=== PATIENT | female | born 1960 | race Caucasian/White ===

== ENCOUNTER → 2016-05-31 | Outpatient (CLI) | payer OTHER ==
[2016-05-31 07:24] LABS: MEAN PLATELET VOLUME 9.8 FL (7.4-10.4); RED BLOOD COUNT 4.8 10^6/uL (4.35-5.85); RED CELL DISTRIBUTION WIDTH 14.9 % (10.0-14.5)
[2016-05-31 07:43] LABS: ALANINE AMINOTRANSFERASE 32 U/L (0-55); ALBUMIN 3.9 G/DL (3.2-4.5); ANION GAP 7 MMOL/L (5-14); ASPARTATE AMINO TRANSFERASE 23 U/L (5-34); BILIRUBIN,TOTAL 0.4 MG/DL (0.1-1.0); BLOOD UREA NITROGEN 15 MG/DL (7-18); BUN/CREATININE RATIO 18; CALCIUM 8.9 MG/DL (8.5-10.1); CARBON DIOXIDE 25 MMOL/L (21-32); CHLORIDE 107 MMOL/L (98-107); CHOLESTEROL 236 MG/DL (< 200); CREATININE SERUM 0.82 MG/DL (0.60-1.30); DIRECT LDL 169 MG/DL (1-129); GFR ESTIMATED > 60; GLUCOSE 109 MG/DL (70-105); MAGNESIUM 2.3 MG/DL (1.8-2.4); POTASSIUM 4.1 MMOL/L (3.6-5.0); SODIUM 139 MMOL/L (135-145); TOTAL PROTEIN 6.7 G/DL (6.4-8.2); TRIGLYCERIDES 91 MG/DL (<150); VLDL CHOLESTEROL 18 MG/DL (5-40)
[2016-05-31 08:04] LABS: THYROID STIMULATING HORMONE 4.13 UIU/ML (0.35-4.94)
[2016-06-02 07:15] LABS: TRIIODOTHYRONINE T3 FREE 3.7 pg/mL (2.4-4.5)
== END ==
LOC: LAB 07:04
PROVIDERS: ATTEND Nurse Practitioner Family
DX: Z00.00 Encounter for general adult medical examination without abnormal findings (principal)
CPT/HCPCS: 36415; 80053; 80061; 82306; 83036; 83735; 84439; 84443; 84481; 85027

== ENCOUNTER → 2016-07-16 | Outpatient (CLI) | payer OTHER ==
--- NOTE | 2016-07-16 11:13 | Diagnostic Imaging Report ---
Bilateral diagnostic mammogram. CAD is utilized. COMPARISON: 11/17/2015. INDICATION: Lesion seen on prior studies in the right breast. FINDINGS: The breasts are composed of heterogeneously dense parenchyma which may decrease mammographic sensitivity. Previously seen lobulated nodules in the far posterior central aspect of the right MLO view are less prominent on the current exam compatible with diminishing cysts. There is no definite mass, architectural distortion, or suspicious cluster of calcification. Allowing for technique and positional differences, no suspicious change is seen. IMPRESSION: No significant change. ACR BI-RADS Category 2: Benign findings. Result letter will be mailed to the patient. Note: At least 10% of breast cancer is not imaged by mammography. Dictated by: Dictated on workstation # [id number]
== END ==
LOC: RAD 07:32
PROVIDERS: ATTEND Internal Medicine
DX: R92.8 Other abnormal and inconclusive findings on diagnostic imaging of breast (principal)
CPT/HCPCS: 77066

== ENCOUNTER → 2017-03-10 | Outpatient (CLI) | payer OTHER ==
[2017-03-10 14:57] LABS: BUN/CREATININE RATIO 16; CALCIUM 9.2 MG/DL (8.5-10.1); CARBON DIOXIDE 28 MMOL/L (21-32); CHLORIDE 101 MMOL/L (98-107); CREATININE SERUM 0.89 MG/DL (0.60-1.30); GFR ESTIMATED > 60; GLUCOSE 95 MG/DL (70-105); POTASSIUM 3.6 MMOL/L (3.6-5.0); SODIUM 140 MMOL/L (135-145)
== END ==
LOC: LAB 14:23
PROVIDERS: ATTEND Internal Medicine
DX: I10 Essential (primary) hypertension (principal)
CPT/HCPCS: 36415; 80048

== ENCOUNTER → 2017-10-07 | Outpatient (CLI) | payer OTHER ==
--- NOTE | 2017-10-07 18:49 | Diagnostic Imaging Report ---
INDICATION: Routine screening. COMPARISON is made with prior exam from 07/16/2016 and 05/23/2015. 2-D and 3-D bilateral screening mammography was performed with CAD. FINDINGS: Both breasts are heterogeneously dense, limiting the sensitivity of mammography. Circumscribed nodular densities are again noted in both breasts consistent with benign etiologies. No spiculated mass or malignant appearing microcalcifications are seen. The axillae are unremarkable. IMPRESSION: BI-RADS category 2 No mammographic features suspicious for malignancy are identified. ACR BI-RADS Category 2: Benign findings. Result letter will be mailed to the patient. Note: At least 10% of breast cancer is not imaged by mammography. Dictated by: Dictated on workstation # [id number]
== END ==
LOC: RAD 07:13
PROVIDERS: ATTEND Internal Medicine
DX: Z12.31 Encounter for screening mammogram for malignant neoplasm of breast (principal)
CPT/HCPCS: 77067

== ENCOUNTER → 2018-07-30 | Outpatient (CLI) | payer OTHER ==
--- NOTE | 2018-07-30 12:55 | Diagnostic Imaging Report ---
INDICATION: Chronic right groin pain. TECHNIQUE: 2 views of the right hip. CORRELATION STUDY: None FINDINGS: Images of the hip demonstrate no evidence for acute fracture. Alignment is anatomic. The femoral head acetabular relationship is unremarkable. The bony trabecular pattern is intact. Surgical clips suggested within the left hemipelvis. IMPRESSION: 1. Unremarkable appearing radiographic examination of the right hip. Dictated by: Dictated on workstation # [id number]
== END ==
LOC: RAD 12:15
PROVIDERS: ATTEND Internal Medicine
DX: E03.9 Hypothyroidism, unspecified (principal); K66.0 Peritoneal adhesions (postprocedural) (postinfection); J45.909 Unspecified asthma, uncomplicated; I10 Essential (primary) hypertension; M25.551 Pain in right hip
CPT/HCPCS: 73502

== ENCOUNTER → 2018-10-26 | Outpatient (CLI) | payer OTHER ==
--- NOTE | 2018-10-26 21:05 | Diagnostic Imaging Report ---
INDICATION: Screening TECHNIQUE: The current study was also evaluated with a Computer Aided Detection (CAD) system. 3-D Tomographic imaging was also performed. COMPARISONS: 10/07/2017, 07/16/2016 and 11/17/2015 FINDINGS: The fibroglandular tissues are heterogeneously dense bilaterally. There is no dominant mass, spiculated lesion or suspicious calcification identified. The skin, nipples and axillae are unremarkable. IMPRESSION: Category 2 benign. ACR BI-RADS Category 2: Benign findings. Result letter will be mailed to the patient. Note: At least 10% of breast cancer is not imaged by mammography. Dictated by: Dictated on workstation # [id number]
== END ==
LOC: RAD 07:09
PROVIDERS: ATTEND Internal Medicine
DX: Z12.31 Encounter for screening mammogram for malignant neoplasm of breast (principal)
CPT/HCPCS: 77067

== ENCOUNTER → 2019-07-21 | Outpatient (CLI) | payer OTHER ==
[2019-07-21 08:14] LABS: BASOPHILS % (AUTO) 0 % (0-10); EOSINOPHILS # (AUTO) 0.1 10^3/uL (0.0-0.3); EOSINOPHILS % (AUTO) 1 % (0-10); HEMATOCRIT 42 % (35-52); HEMOGLOBIN 13.9 G/DL (11.5-16.0); LYMPHOCYTES # (AUTO) 1.6 X 10^3 (1.0-4.0); LYMPHOCYTES % (AUTO) 20 % (12-44); MEAN CORPUSCULAR HEMOGLOBIN 28 PG (25-34); MEAN CORPUSCULAR HGB CONC 33 G/DL (32-36); MEAN CORPUSCULAR VOLUME 85 FL (80-99); MEAN PLATELET VOLUME 10.1 FL (7.4-10.4); MONOCYTES # (AUTO) 0.8 X 10^3 (0.0-1.0); MONOCYTES % (AUTO) 10 % (0-12); NEUTROPHILS # (AUTO) 5.5 X 10^3 (1.8-7.8); NEUTROPHILS % (AUTO) 68 % (42-75); PLATELET COUNT 298 10^3/uL (130-400); RED CELL DISTRIBUTION WIDTH 14.2 % (10.0-14.5)
[2019-07-21 08:25] LABS: ALBUMIN 4.1 GM/DL (3.2-4.5); CHLORIDE 104 MMOL/L (98-107); POTASSIUM 4.3 MMOL/L (3.6-5.0); SODIUM 138 MMOL/L (135-145)
[2019-07-21 08:26] LABS: CALCIUM 9.4 MG/DL (8.5-10.1)
[2019-07-21 08:27] LABS: TRIGLYCERIDES 97 MG/DL (<150); VLDL CHOLESTEROL 19 MG/DL (5-40)
[2019-07-21 08:28] LABS: GLUCOSE 107 MG/DL (70-105); TOTAL PROTEIN 7.2 GM/DL (6.4-8.2)
[2019-07-21 08:29] LABS: CARBON DIOXIDE 25 MMOL/L (21-32)
[2019-07-21 08:30] LABS: BILIRUBIN,TOTAL 0.7 MG/DL (0.1-1.0)
[2019-07-21 08:31] LABS: ALKALINE PHOSPHATASE 77 U/L (40-136); CREATININE SERUM 0.78 MG/DL (0.60-1.30); GFR ESTIMATED > 60
[2019-07-21 08:32] LABS: CHOLESTEROL 165 MG/DL (< 200)
[2019-07-21 08:33] LABS: BUN/CREATININE RATIO 14
[2019-07-21 08:34] LABS: HDL CHOLESTEROL 63 MG/DL (40-60)
[2019-07-21 08:35] LABS: ALANINE AMINOTRANSFERASE 24 U/L (0-55)
--- NOTE | 2019-07-21 10:24 | Diagnostic Imaging Report ---
INDICATION: Neck pain. TIME OF EXAM: 10:05 AM. TECHNIQUE: Multiple views of the cervical spine were obtained. FINDINGS: There is minimal anterolisthesis of C4 on C5 and C5 on C6. Significant degenerative disc disease at the C6-C7 level is noted with disc space narrowing and marginal osteophyte formation. No significant bony neuroforaminal narrowing is seen. The odontoid is intact. The prevertebral tissues are within normal limits. IMPRESSION: Cervical spondylosis and listhesis. No acute bony abnormality is detected. Dictated by: Dictated on workstation # [id number]
== END ==
LOC: RAD 07:55
PROVIDERS: ATTEND Internal Medicine
DX: M54.2 Cervicalgia (principal); I10 Essential (primary) hypertension
CPT/HCPCS: 36415; 72050; 80053; 80061; 84443; 85025

== ENCOUNTER 2019-11-03 15:50 | Outpatient (RCR) | payer OTHER | END 2019-12-28 | disposition home or self-care (01) | PROVIDERS: ATTEND Physical Therapist | DX: M50.323 Other cervical disc degeneration at C6-C7 level (principal) ==

== ENCOUNTER → 2020-02-22 | Outpatient (CLI) | payer OTHER ==
--- NOTE | 2020-02-22 12:34 | Diagnostic Imaging Report ---
INDICATION: Routine screening. COMPARISON: 10/26/2018 and 10/07/2017. TECHNIQUE: 2D and 3D bilateral screening mammography was performed with CAD. FINDINGS: Both breasts remain heterogeneously dense, limiting the sensitivity of mammography. There are multiple circumscribed nodules identified in both breasts with benign characteristics, most suggestive of cysts. No dominant mass or malignant appearing microcalcifications are seen. The axillae are unremarkable. IMPRESSION: No mammographic features suspicious for malignancy are identified. ACR BI-RADS Category 2: Benign findings. Result letter will be mailed to the patient. Note: At least 10% of breast cancer is not imaged by mammography. Dictated by: Dictated on workstation # [id number]
== END ==
LOC: RAD 07:15
PROVIDERS: ATTEND Internal Medicine
DX: Z12.31 Encounter for screening mammogram for malignant neoplasm of breast (principal)
CPT/HCPCS: 77063; 77067

== ENCOUNTER 2020-08-25 12:29 | Outpatient (CLI) | payer OTHER | END 2020-08-25 12:50 | LOC: SLEEP 12:29 | PROVIDERS: ATTEND Otolaryngology Otolaryngology/Facial Plastic Surgery | DX: G47.33 Obstructive sleep apnea (adult) (pediatric) (principal); G47.10 Hypersomnia, unspecified; J34.3 Hypertrophy of nasal turbinates; J30.9 Allergic rhinitis, unspecified | CPT/HCPCS: G0399 ==

== ENCOUNTER → 2020-09-15 | Outpatient (CLI) | payer OTHER ==
[~2020-09-15] VITALS: Ht 157 cm; Wt 65.0 kg
[~2020-09-15] MED LIST: CATHETER FLUSH 10 ML SYR IV PRN
[2020-09-15 08:08] VITALS: BP 158/90
--- NOTE | 2020-09-15 10:14 | NUCLEAR STRESS TEST ---
TREADMILL NUCLEAR STRESS TEST Date of procedure: 09/15/2020. Primary care provider: Abebe Romano DO. Admitting physician: Abebe Romano DO. INDICATION: Tachycardia. NUCLEAR PROCEDURE: The patient was administered 10.4 mCi of intravenous technetium 99m Tetrofosmin at rest for the rest images. The patient was subsequently administered 28.5 mCi of intravenous technetium 99 M Tetrofosmin at peak stress for the stress images. Following an appropriate wait after each injection, imaging was obtained. The images were subsequently processed and reformatted in the usual views. Gated imaging was obtained. The image quality was adequate with some degree of gastrointestinal attenuation artifact. CT attenuation correction was used as an adjunct to standard imaging. Both the corrected and uncorrected images were reviewed for interpretation. NUCLEAR RESULTS: There was normal myocardial perfusion in all segments without evidence of infarction or ischemia. There was normal left ventricular chamber size with an end-diastolic volume of 18 mL and an end-systolic volume of 4 mL. There was no evidence of transient ischemic dilatation. The TID ratio was 1.03. There was normal wall motion in all segments with a calculated ejection fractio n of 78%. IMPRESSION: 1. This is the nuclear portion of a treadmill nuclear stress test. Please refer to separate report for treadmill results. 2. There was normal myocardial perfusion in all segments without evidence of infarction or ischemia. 3. There was normal wall motion in all segments with a calculated ejection fraction of 78%. Certain portions of this document may have been dictated utilizing voice recognition technology. Inherent to this technology, typographical and grammatical errors may exist. As much as I am diligent to identify and correct these mistakes, some errors may remain in the document. ANU VILLEDA JR, MD Sep 15, 2020 10:14
== END ==
LOC: CARD 06:34
PROVIDERS: ATTEND Internal Medicine
DX: R00.0 Tachycardia, unspecified (principal)
CPT/HCPCS: 78452; 93017; A9502

== ENCOUNTER → 2021-01-30 | Outpatient (CLI) | payer OTHER | LOC: LAB 11:01 | PROVIDERS: ATTEND Internal Medicine | DX: E03.8 Other specified hypothyroidism (principal); E53.8 Deficiency of other specified B group vitamins; G47.09 Other insomnia | CPT/HCPCS: 36415; 84443 ==

== ENCOUNTER → 2021-03-02 | Outpatient (CLI) | payer OTHER ==
--- NOTE | 2021-03-05 08:56 | Diagnostic Imaging Report ---
INDICATION: Routine screening. Comparison is made prior mammogram 02/22/2020 and 10/07/2017. 2-D and 3-D bilateral screening mammography was performed with CAD. Both breasts are heterogeneously dense, limiting the sensitivity of mammography. Fibronodular parenchymal pattern appears to be fairly stable. No spiculated mass or malignant-appearing microcalcifications are seen. Axillae are unremarkable. IMPRESSION: No mammographic features suspicious for malignancy are identified. BI-RADS Category 2 ACR BI-RADS Category 2: Benign findings. Result letter will be mailed to the patient. Note: At least 10% of breast cancer is not imaged by mammography. Dictated by: Dictated on workstation # [id number]
== END ==
LOC: RAD 07:17
PROVIDERS: ATTEND Internal Medicine
DX: Z12.31 Encounter for screening mammogram for malignant neoplasm of breast (principal)
CPT/HCPCS: 77063; 77067

== ENCOUNTER → 2022-03-14 | Outpatient (CLI) | payer OTHER ==
--- NOTE | 2022-03-14 13:01 | Diagnostic Imaging Report ---
INDICATION: Routine screening. Comparison is made with prior mammogram 03/02/2021 and 02/22/2020. 2-D and 3-D bilateral screening mammography was performed with CAD. CAD is utilized. The current study was also evaluated with a Computer Aided Detection (CAD) system. Both breasts are heterogeneously dense, limiting the sensitivity of mammography. The fibronodular parenchymal pattern is stable. No new mass or malignant-appearing microcalcifications are seen. Axillae are unremarkable. IMPRESSION: BI-RADS Category 2 No mammographic features suspicious for malignancy are identified. ACR BI-RADS Category 2: Benign findings. Result letter will be mailed to the patient. Note: At least 10% of breast cancer is not imaged by mammography. Dictated by: Dictated on workstation # [id number]
== END ==
LOC: RAD 09:49
PROVIDERS: ATTEND Internal Medicine
DX: Z12.31 Encounter for screening mammogram for malignant neoplasm of breast (principal)
CPT/HCPCS: 77063; 77067

== ENCOUNTER 2023-01-10 08:56 | Emergency (ER) | payer OTHER ==
--- NOTE | 2023-01-10 09:39 | ED Integumentary General ---
General Chief Complaint: Allergic Reaction Stated Complaint: ALLERGIC REACTION Nursing Triage Note: PT AMB TO RM 3 PT CO OF SOME TYPE OF ALLERGIC RX ON FACE, CHEEKS VERY REDDEND AND AND HAS BURNING PAIN SENSATION. PT STATES STARTED LAST NITE, HAS TAKEN BENADRYL 12.5MG AND PEPCID 20MG TODAY AND NO IMPROVEMENT. PT DID USE SOME TYPE OF NEW SOAP ON FACE. Source: patient Exam Limitations: no limitations History of Present Illness Date Seen by Provider: Jan 10, 2023 Time Seen by Provider: 09:04 Initial Comments Lam is a 62 year old woman who presents to the ER with concern about a burning erythema of the face, and to a lesser extent on the neck, after taking a bath with Olay soap yesterday. Symptoms were not present prior to that. This was her first bath in a new home. She believes the soap was the only new exposure as far as she is aware. She applied Neosporin and Aloevera gell without improvement. She took Benadryl and Pepcid. The rash faustin but does not itch. No prior episodes. She reports receiving the flu vaccine a few days ago. Allergies and Home Medications Allergies Coded Allergies: aspirin (Unverified Allergy, Unknown, 09/15/20) clarithromycin (Unverified Allergy, Unknown, 09/15/20) ibuprofen (Unverified Allergy, Unknown, 09/15/20) Patient Home Medication List Home Medication List Reviewed: Yes Review of Systems Review of Systems Constitutional: no symptoms reported EENTM: see HPI Respiratory: no symptoms reported Cardiovascular: no symptoms reported Gastrointestinal: no symptoms reported Genitourinary: no symptoms reported : No Musculoskeletal: no symptoms reported Skin: see HPI Psychiatric/Neurological: No Symptoms Reported Endocrine: No Symptoms Reported Hematologic/Lymphatic: No Symptoms Reported Past Elvayvw-Wvtnsi-Cotjtw Hx Patient Social History Tobacco Use?: No Substance use?: No Alcohol Use?: No Pt feels they are or have been: No Immunizations Up To Date Influenza Vaccine Up-to-Date: Yes; Up-to-Date First/Initial COVID19 Vaccinat: YES Second COVID19 Vaccination Vu: YES Past Medical History Surgery/Hospitalization HX: BOWEL RESECTION, HYST, FOOT. THYROID. Surgeries: Yes (bowel resection) Gallbladder, Hysterectomy Respiratory: Yes Asthma Cardiac: Yes Hypertension Gastrointestinal: Yes Obstructive Bowel Physical Exam Vital Signs Vital Signs - First Documented 01/10/23 09:00 Pulse 114 Resp 18 B/P (MAP) 137/86 (103) Pulse Ox 100 Capillary Refill : Less Than 3 Seconds General Appearance: WD/WN, no apparent distress HEENT: PERRL/EOMI, pharynx normal, other (blanching erythema and mild swelling of the face and slightly on the neck) Cardiovascular: regular rate, rhythm, no edema, no murmur Respiratory: lungs clear, normal breath sounds, no respiratory distress Neurologic/Psychiatric: alert, normal mood/affect, oriented x 3 Skin: warm/dry, rash (red rash as above) Progress/Results/Core Measures Results/Orders Vital Signs/I&O 01/10/23 01/10/23 09:00 09:51 Pulse 114 114 Resp 18 18 B/P (MAP) 137/86 (103) 137/86 Pulse Ox 100 100 Blood Pressure Mean: 103 Progress Progress Note : Progress Note Symptoms seem consistent with chemical irritation or dermatitis, or less likely an autoimmune rash. Labs offered but conservative observation elected. See discharge instructions for discussion. Departure Impression Primary Impression: Skin irritation Disposition: 01 HOME, SELF-CARE Condition: Stable Departure-Patient Inst. Decision time for Depature: 09:36 Referrals: CINDY GALEANA DO (PCP/Family) Primary Care Physician Patient Instructions: Chemical Exposure to the Skin ED Add. Discharge Instructions: The exact cause of your facial rash is uncertain but it may be a chemical irritation from your soap. Do not apply any other topical treatments to your face today. Rinse your face with lukewarm or cool water for several minutes when you return home. If your skin becomes very dry or flaky, you may use a moisturizer that you know is well-tolerated. Something hypoallergenic such as coconut oil may be beneficial. If your skin becomes more purpleish in color or becomes nonblanchable, follow-up with your primary care provider may be necessary. Although less likely, rash associated with an autoimmune disorder may present in this fashion. For itching and swelling, you may continue using antihistamines such as Pepcid (famotidine) or Benadryl (diphenhydramine). Please contact Dr. Enciso if you have questions or concerns on his cell phone at [phone]. Return to the emergency room if you have worsening symptoms, especially if you develop tightness or swelling in your throat, sh ortness of breath, or other concerns about vital functions. All discharge instructions reviewed with patient and/or family. Voiced understanding. Copy Copies To 1: [facility]/JANEL MOSER MD Jan 10, 2023 09:39
[2023-01-10 09:51] VITALS: BP 137/86
== END 2023-01-10 09:51 | disposition home or self-care (01) ==
LOC: EDUNIT# 08:56 → ER 08:58
DX: L98.9 Disorder of the skin and subcutaneous tissue, unspecified (principal)
CPT/HCPCS: 99281